=== PATIENT | female | born 1950 | race Caucasian/White ===

== ENCOUNTER → 2021-03-04 | Outpatient (CLI) | payer MEDICARE, OTHER ==
[~2021-03-04] MED LIST: ADULT LOW DOSE81 MG PO; ALEVE220 M1 PO; ATENOLOL 25 MG25 M1 PO; CALCIUM 600 +1 EAC8 PO; FISH OIL 1,0001 EAC9 PO; FUROSEMIDE 20 M20 MG PO; KLOR-CON 10 ER10 MEQ PO; NEXIUM20 MG PO; SODIUM BICARBO650 M3 PO; XARELTO10 MG PO
[2021-03-04 15:43] LABS: URINE BILIRUBIN NEGATIVE (Negative); URINE BLOOD NEGATIVE (Negative); URINE CLARITY CLEAR; URINE COLOR YELLOW; URINE GLUCOSE-RANDOM NEGATIVE (Negative); URINE KETONES NEGATIVE (Negative); URINE LEUKOCYTES-REFLEX NEGATIVE (Negative); URINE NITRITE-REFLEX NEGATIVE (Negative); URINE PROTEIN NEGATIVE (Negative); URINE UROBILINOGEN 0.2 E.U./dl (0.2-1.0)
--- NOTE | 2021-03-11 12:15 | NUR ---
PATIENT DISCHARGED AT THIS TIME [facility], ACCOMPANIED BY THIS RN AND SON TO PRIVATED VEHICLE. IV DC'D, COTTON AND TAPE PLACED TO AREA. HEMOVAC REMOVED BY PATCH MACHINE OPERATOR AND INSTRUCTOR. 4X4 AND TAPE APPLIED TO AREA, WITHOUT COMPLICATIONS. DISCHARGE INSTRUCTIONS REVIEWED, ACKNOWLEDGED UNDERSTANDING. ALL PERSONAL ITEMS SENT HOME WITH PATIENT. ALL QUESTIONS AND CONCERNS ADDRESSED.
== END ==
LOC: M.LAB 03-03 17:02
PROVIDERS: ATTEND Orthopaedic Surgery
DX: Z01.818 Encounter for other preprocedural examination (principal); M16.11 Unilateral primary osteoarthritis, right hip

== ENCOUNTER 2021-03-10 06:54 | Inpatient (IN) | payer MEDICARE, OTHER ==
[~2021-03-10] VITALS: Ht 160 cm; Wt 78.0 kg
--- NOTE | ~2021-03-10 | OP ---
[facility] [address] [place] [address] OPERATIVE REPORT Name: CHANELL BALL Room: [facility]- ADM IN M.R.#: [id number] Admission: 03/10/21 Attend Phys: Patrica Wang Discharge: Date of : 48 Report #: [id number] THIS REPORT FOR: cc: FAM - No family physician/PCP FAM - No family physician/PCP Shailesh Duron II, DO ~ DATE OF SURGERY: 03/10/2021 PREOPERATIVE DIAGNOSIS: Right hip osteoarthritis. POSTOPERATIVE DIAGNOSIS: Right hip osteoarthritis. PROCEDURE: Right total hip arthroplasty. SURGEON: Shailesh Duron II, DO. CORE INSPECTOR: AVELINO Maurice. ANESTHESIA: General endotracheal. ESTIMATED BLOOD LOSS: 200 mL. ANTIBIOTICS: Ancef preoperatively. DRAINS: Medium Hemovac. COMPLICATIONS: None. CONDITION: The patient was stable to recovery room. IMPLANTS: Listed in operative record and progress note. BRIEF HISTORY: The patient was seen in the preoperative area. Preoperative H and P was performed. Site was marked, questions were answered. Risks and benefits were discussed with the patient in detail about surgery. The patient wished to proceed assuming all risks. DESCRIPTION OF PROCEDURE: The patient was taken to the operative suite, placed supine on the table, given appropriate anesthesia. The patient's operative hip was placed in the [place] table leg klein and sterilely prepped and draped in the supine position. Surgery began by longitudinal incision over the anterior portion of the hip. This was carried down to subcutaneous tissues. A small trent was made in the tensor fascia, it was split along its fibers and retracted laterally. An H capsulotomy was then performed and careful hemostasis was obtained with electrocautery and Aquamantys. The head and neck cutting alignment guide was then checked with fluoroscopic [place] [address] OPERATIVE REPORT Name: CHANELL BALL Room: [address] [place] [facility].#: [id number] Admission: 03/10/21 Attend Phys: Patrica Wang Discharge: Date of : 48 Report #: [id number] was made to the head and neck and this was removed, attention was turned to the acetabulum. Excess labrum was removed. It was then reamed in sequential fashion up to appropriate size. This showed excellent bleeding bone and excellent position on fluoroscopic guidance. The acetabular cup was malleted in position and secured with two cancellous screws. Metal liner was then applied. The patient's leg was then rotated and extended to the [place] table to expose the femur. It was then broached in sequential fashion up to appropriate size. The appropriate neck was then trialed with appropriate head length and shown to have excellent fit and fill and excellent stability of hip in all range of motion. These trials were removed. The final stem was then malleted in position and the final head was then malleted in position, it was reduced in appropriate fashion, checked with C-arm for appropriate leg length. This showed to have excellent leg length throughout the exam without evidence of dislocation upon range of motion and shuck testing. Wound was then copiously irrigated. Hemostasis was maintained with electrocautery and Aquamantys. The pain cocktail was injected. The drain was activated. The H capsulotomy was then closed utilizing #1 Vicryl in vrhubr-ne-cfegm fashion. Tensor fascia was then closed with #1 Vicryl in running fashion. Skin was closed with 2-0 Vicryl and 3-0 Monocryl in a running fashion with Dermabond. Sterile dressing applied. The patient was transported to recovery in stable condition. Counts were correct throughout the procedure. By: [id number] Duron II, DO /nt
[~2021-03-10 06:54] MED LIST changes: -XARELTO10 MG PO
[2021-03-11] VITALS: BP 134/64
[2021-03-11 04:00] VITALS: BP 150/68
[2021-03-11 07:59] LABS: HEMATOCRIT 41.9 % (37.0-47.0)
[2021-03-11 08:00] VITALS: BP 142/60
[2021-03-11] MEDS ORDERED: XARELTO10 MG PO (09:46)
[2021-03-11 11:36] VITALS: BP 142/60
[2021-03-11 11:43] VITALS: BP 142/60
== END 2021-03-11 12:00 | disposition home or self-care (01) | DRG 470 ==
LOC: M.2W 06:54 → M.TBA 06:54 → M.ORTHSURG 08:42 → M.2W 18:53
PROVIDERS: Orthopaedic Surgery; ADMIT Internal Medicine; ATTEND Internal Medicine
PROC: 0SR903A Replacement of Right Hip Joint with Ceramic Synthetic Substitute, Uncemented, Open Approach (ICD-10-PCS; principal; 2021-03-10)
DX: M16.11 Unilateral primary osteoarthritis, right hip (principal); Z20.822 Contact with and (suspected) exposure to COVID-19; I10 Essential (primary) hypertension; F17.210 Nicotine dependence, cigarettes, uncomplicated; G89.29 Other chronic pain; Z88.8 Allergy status to other drugs, medicaments and biological substances; Z88.5 Allergy status to narcotic agent; Z91.012 Allergy to eggs